=== PATIENT | female | born 1960 | race Caucasian/White ===

== ENCOUNTER → 2020-06-03 | Outpatient (CLI) | payer BC ==
[2020-06-05 15:13] LABS: HISTOPLASMA GAL'MANNAN AG UR <0.5 (<0.5 ng/mL)
[2020-06-05 18:08] LABS: STRONGYLOIDES IGG ANTIBODY Negative (Negative)
[2020-06-07 16:10] LABS: ASPERGILLUS FLAVUS Negative (Neg:<1:1); ASPERGILLUS FUMIGATUS Negative (Neg:<1:1); ASPERGILLUS NIGER Negative (Neg:<1:1)
[2020-06-08 08:10] LABS: SPECIMEN TYPE URINE (.)
== END ==
LOC: OPSV 12:00
PROVIDERS: Internal Medicine Infectious Disease
DX: R50.9 Fever, unspecified (principal)
CPT/HCPCS: 36415; 86606; 86612; 86682; 86698; 87040; 87385